=== PATIENT | male | born 1980 | race Caucasian/White ===

== ENCOUNTER 2024-01-08 15:21 | Outpatient (REF) | payer OTHER, SELFPAY ==
[2024-01-08 15:37] LABS: MANUAL DIFF FLAG NO
[2024-01-08 17:31] LABS: Basophils Absolute Auto 0.1 X10*3/uL (0.0-0.2); Basophils Percent Auto 1.2 % (0-2); Eosinophils Absolute Auto 0.4 X10*3/uL (0.0-0.4); Eosinophils Percent Auto 5.3 % (0-4); Hematocrit 47.5 % (42.0-52.0); Hemoglobin 15.9 g/dl (14.0-18.0); Imm Gran Abs Auto 0.03 X10*3/uL (0.00-0.03); Imm Gran Pct Auto 0.4 % (0.0-0.4); Lymphocytes Absolute Auto 2.2 X10*3/uL (1.2-4.9); Lymphocytes Percent Auto 32.2 % (20-40); Mean Corpuscular HGB Conc 33.5 g/dl (31.0-36.0); Mean Corpuscular Hemoglobin 30.2 pg (27.0-33.0); Mean Corpuscular Volume 90.3 fL (80.0-98.0); Mean Platelet Volume 11.4 fL (9.4-12.4); Monocytes Absolute Auto 0.5 X10*3/uL (0.1-1.2); Monocytes Percent Auto 7.3 % (2-11); Neutrophils Absolute Auto 3.7 x10*3/uL (2.0-8.3); Neutrophils Percent Auto 53.6 % (45-73); Platelet Count 239 X10*3/uL (160-400); Red Blood Count 5.26 X10*6/uL (4.60-5.80); Red Cell Distribution Width 12.9 % (11.0-16.0)
[2024-01-08 18:18] LABS: Alanine Aminotransferase 31 U/L (0-40); Albumin Level 4.5 g/dL (3.5-5.0); Alkaline Phosphatase 72 U/L (39-117); Anion Gap 11 (12-20); Aspartate Amino Transferase 24 U/L (5-37); Bilirubin Total 0.5 mg/dL (0.0-1.0); Blood Urea Nitrogen 11 mg/dL (9-16); Calcium 9.7 mg/dL (8.4-10.2); Carbon Dioxide 31 mmol/L (22-29); Chloride 103 mmol/L (96-108); Cholesterol 227 mg/dL (<200); Estimated Glomerular Filt Rate > 60; Glucose Random 53 mg/dL (60-115); Sodium 141 mmol/L (135-145); Total Protein 7.8 g/dL (6.5-8.0)
[2024-01-08 18:19] LABS: Free T4 (Free Thyroxine) 0.92 ng/dL (0.71-1.85); Thyroid Stimulating Hormone 0.92 uIU/mL (0.32-4.0)
[2024-01-08 18:20] LABS: Vitamin B12 264 pg/mL (200-900)
[2024-01-15 12:08] LABS: Testosterone, Free 70.7 pg/mL (35.0-155.0); Testosterone, Total 431 ng/dL (250-1100)
== END 2024-01-08 15:22 | disposition home or self-care (01) ==
LOC: HO.LAB 15:21
PROVIDERS: PCP Internal Medicine; Visit Provider Internal Medicine
DX: R63.5 Abnormal weight gain (principal); R53.83 Other fatigue
CPT/HCPCS: 36415; 80053; 82465; 82607; 84402; 84403; 84439; 84443; 85025

== ENCOUNTER 2024-01-17 07:57 | Outpatient (REF) | payer OTHER, SELFPAY ==
[2024-01-17 09:05] LABS: Cholesterol 213 mg/dL (<200); Glucose Random 77 mg/dL (60-115); HDL Cholesterol 57 mg/dL (>40); LDL Cholesterol Calculated 144 mg/dL (<100); Triglycerides 62 mg/dL (<150)
== END 2024-01-17 07:58 | disposition home or self-care (01) ==
LOC: HO.LAB 07:57
PROVIDERS: PCP Internal Medicine; Visit Provider Internal Medicine
DX: E78.00 Pure hypercholesterolemia, unspecified (principal); E16.2 Hypoglycemia, unspecified
CPT/HCPCS: 36415; 80061; 82947

== ENCOUNTER 2025-07-22 08:33 | Outpatient (AMB) | payer OTHER, SELFPAY ==
--- NOTE | 2025-07-22 08:36 | A.OFFPC_ITS ---
Vital Signs 07/22/25 08:41 Height 5 ft 10 in Weight 196 lb BMI 28.1 BP 140/76 H Blood Pressure Location Rt brachial Position Sitting Respiration 16 Pulse 79 Pulse Source Pulse Oximeter Temp 97.2 F Temp Source Temporal Artery Scan Pulse Oximetry (%) 97 Oxygen Delivery Method Room Air Intake Visit Reasons: physical - Croke pt. - see comments Qc Tech Required: No Accompanied by: Self / Same As Patient Allergies No Known Allergies Allergy (Verified 07/22/25 08:36) Medication List - Last Reconciled 07/22/25 by Jules Oleary MD albuterol sulfate 90 mcg/actuation 2 puffs inhalation Q4H PRN budesonide-formoterol 160-4.5 mcg/actuation (Symbicort) 2 puffs inhalation BID multivitamin 1 tab PO DAILY Novato's wort 300 mg PO DAILY Tobacco use date assessed: 07/22/25 Dental Screening Dental Screen Date: 07/22/25 Did you have a dental visit in the last 12 months?: Yes Did you have a dental problem in the last 6 months where you did not have access to dental care?: No Was dental information given to patient?: Patient has dentist HPI HPI Comments History of Present Illness Details The patient is a 45-year-old male presenting with tinnitus and depressive symptoms. The tinnitus, present in both ears, began insidiously and became noticeable approximately six months ago. It varies in intensity but is continuous, with some associated hearing loss. The patient denies dizziness or headaches but reports attending numerous concerts without ear protection, suggesting noise-induced auditory damage. The patient also reports episodic visual disturbances and an episode of nystagmus two weeks prior, prompting further neurological evaluation. Additionally, the patient experiences symptoms of depression, including persistent low mood, anhedonia, poor appetite, daily feelings of worthlessness, difficulty concentrating on most days, and sleep disturbances on several days. These symptoms elevate nearly every day, impacting daily functioning. There is no history of josse or external stressors contributing to these symptoms. Medical History: - Asthma, well-controlled with medicatio ns - Seasonal Allergies - Alcohol Use Disorder in early remissio n - Major Depressive Disorder - Generalized Anxiety Disorder Surgical History: - No past surgical procedures Medications: - Symbicort, for asthma control, twice d aily - Albuterol, as needed for asthma - Cannabis sleep gummies, occasionally, for sleep Family History: - Father: History of myocardial infarcti on - Grandfather: History of heart disease - No known diabetes, hypertension, or ca ncer in family Social: - , lives with - History of smoking for 15 years, quit 10 years ago - Abstinent from alcohol for 2 months - Uses cannabis gummies a few times a we ek for sleep - Presents with moderate mood and motiva tion challenges COUNT INCLUDES THE [facility] Medical History (Updated 07/22/25 @ 09:04 by Jules Oleary MD) Depression with anxiety Establishing care with new doctor, encounter for Nystagmus Asthma Tinnitus Social History Housing: House Patient Tobacco Use Status: Former Tobacco user Years Smoked: 15 years-quit 10 years ago e-Cigarette/Vaping Use: Never Used service: No Current occupational status: employed Current occupation: [employer] Questionnaire PHQ-9 Over the last 2 weeks, how often have you been bothered by any of the following problems? 1. Little interest or pleasure in doing things: nearly every day 2. Feeling down, depressed, or hopeless: more than half the days 3. Trouble falling or staying asleep, or sleeping too much: more than half the days 4. Feeling tired or having little energy: more than half the days 5. Poor appetite or overeating: nearly every day 6. Feeling bad about yourself - or that you are a failure or have let yourself or your family down: nearly every day 7. Trouble concentrating on things, such as reading the newspaper or watching television: more than half the days 8. Moving or speaking so slowly that other people could have noticed. Or the opposite - being so fidgety or restless that you have been moving around a lot more than usual: not at all 9. Thoughts that you would be better off or of hurting yourself in some way: not at all Total score: 17 Depression Screening Interpretation: Positive Depression Screening Done: Yes 58495 - PHQ-9 Billing: Yes Source: Developed by Drs. Darryl Mcarthur, Nasrin Natarajan, Aaron Munoz and colleagues, with an educational conner from [employer]. Thrive Questionnaire Date Thrive assessed: 07/22/25 I am a: Patient What is your living situation today?: I have a steady place to live Within the past 12 months, did the food you bought not last and you didn't have the money to get more?: Never true Within the past 12 months, did you worry whether your food would run out before you got money to buy more?: Never true Do you have trouble paying for medicines?: No Do you have trouble getting transportation to medical appointments?: No Do you have trouble paying your heating and electricity bill?: No Do you have trouble taking care of your child, family member or friend?: No Do you have trouble with day-to-day activities such as bathing, preparing meals, shopping, managing finances, etc.?: No Are you currently unemployed and looking for a job?: No Are you interested in more education?: No THRIVE Score: 0 AUDIT C Alcohol Use Questionnaire (AUDIT-C) 1. How often do you have a drink containing alcohol?: Monthly or less 2. How many drinks containing alcohol do you have on a typical day when you are drinking?: 3 or 4 Total Score: 2 Score Reviewed/Action Taken: Yes GREG-7 AMB Questionnaire GREG-7 Date GREG - 7 assessed: 07/22/25 Feeling nervous, anxious, or on edge: 1 = Several days Not being able to stop or control worryin = More than half the days Worrying too much about different things: 2 = More than half the days Trouble relaxin = Not at all Being so restless that it is hard to sit still: 0 = Not at all Becoming easily annoyed or irritable: 2 = More than half the days Feeling afraid as if something awful might happen: 0 = Not at all Total GREG-7 score (0-4 normal; 5-9 mild; 10-14 moderate; 15-21 severe): 7 Source: Developed by Drs. Darryl Mcarthur, Nasrin Natarajan, Aaron Munoz and colleagues, with an educational conner from [employer]. GREG-7 Assessment Billing GREG-7 Assessment Tool: GREG-7 Assessment 08980 Review of Systems Const Details: - Neurological: Reports continuous tinnitus, progressive; Denies dizziness and headaches - Visual: Reports episodic visual distortion, denies regular occurrences - Respiratory: Denies chest pain and shortness of breath - Gastrointestinal: Reports poor appetite daily - Sleep: Reports trouble staying asleep on several days All systems reviewed & are unremarkable except as reviewed in HPI and above Physical exam (Primary Care) Vital Signs: Last Vital Signs Temp 97.2 F 07/22/25 08:41 Pulse 79 07/22/25 08:41 Resp 16 07/22/25 08:41 BP 140/76 H 07/22/25 08:41 Pulse Ox 97 07/22/25 08:41 Oxygen Delivery Method Room Air 07/22/25 08:41 BMI result Body Mass Index 28.1 Tobacco/Smoking Status: Tobacco use Status Tobacco use date assessed 07/22/25 07/22/25 08:43 Patient Tobacco Use Status Former Tobacco user 07/22/25 08:43 e-Cigarette/Vaping Use Never Used 07/22/25 08:43 PHQ-9: PHQ-9 Score PHQ-9: Total score 17 07/22/25 08:56 Depression Screening Interpretation: Positive Thrive Assessment: Date of Thrive Assessment Date Thrive assessed 07/22/25 07/22/25 08:56 Const Other: General: +Alert and oriented, Well nourished, No acute distress. Eye: Pupils are equal, round and reactive to light, Intact accommodation, Extraocular movements are intact, Normal conjunctiva, Vision distortions noted, Nystagmus observed in one eye. HENT: Normocephalic, Atraumatic, Tympanic membranes are clear, Hearing loss noted, Oral mucosa is moist, No pharyngeal erythema, Ear canals patent. Respiratory: Lungs CTA bilaterally, No wheeze, Respirations are non-labored. Cardiovascular: Regular rate, Regular rhythm, S1 auscultated, S2 auscultated, No murmur, Good pulses equal in all extremities, Normal peripheral perfusion, No edema. Gastrointestinal: Soft, Non-tender, Non-distended, Normal bowel sounds, No organomegaly. Musculoskeletal: Normal range of motion, Normal strength, No tenderness, No swelling, No deformity, Normal gait. Integumentary: Warm, Dry, [place], Intact. Neurologic: Alert, Oriented, Normal sensory, Normal motor function, No focal defects, Cranial Nerves II-XII are grossly intact, Normal deep tendon reflexes, Tinnitus in both ears, No dizziness, No headaches. Psychiatric: Cooperative, Depressed mood, Low energy, Poor appetite, Trouble concentrating, Positive for generalized anxiety disorder, Normal judgment. Coding Level of Care Code New Pt Level 4 (11710) New Pt Prev Care 40-64y(07412) Diagnoses Tinnitus of both ears H93.13 Laterality: bilateral Nystagmus H55.00 Mild intermittent asthma without complication J45.20 Asthma complication type: uncomplicated Asthma persistence: intermittent Asthma severity: mild Depression with anxiety F41.8 Additional Codes GREG-7 Assessment Billing - GREG-7 Assessment Tool: GREG-7 Assessment 48000 ([id number]) PHQ-9 - 60158 - PHQ-9 Billing: Yes ([id number]) Assessment & Plan Assessment & Plan (1) Tinnitus: Comment: Presenting with tinnitus for the past 6 months which is continuous and occasionally pulsatile in nature. Also has some associated hearing loss with positive Webbers test lateralizing to the right ear. Has also had an episode of nystagmus. Given all these symptoms and the nature of the tinnitus, there remains a possibility for vestibular schwannomas or some intracranial pathology or hearing loss. Therefore we will obtain an MRI and a hearing evaluation simultaneously. Code(s): H93.19 - Tinnitus, unspecified ear Category: Medical Qualifiers: Laterality: bilateral Qualified Code(s): H93.13 - Tinnitus, bilateral (2) Nystagmus: Comment: One episode and nystagmus seen on the right eye by patient's partner during evaluation at home when he was having vision changes. Could be related to the above tinnitus with intracranial pathology therefore we will await MRI results Code(s): H55.00 - Unspecified nystagmus Category: Medical (3) Asthma: Comment: - Continue current medication regimen with Symbicort and Albuterol for asthma management. Code(s): J45.909 - Unspecified asthma, uncomplicated Category: Medical Qualifiers: Asthma complication type: uncomplicated Asthma persistence: intermittent Asthma severity: mild Qualified Code(s): J45.20 - Mild intermittent asthma, uncomplicated (4) Depression with anxiety: Comment: - Initiate therapy with sertraline 50 mg once daily after a 2-week cessation of Novato?s Wort. - Referral to psychiatry for further evaluation and management. Code(s): F41.8 - Other specified anxiety disorders Category: Medical Plan: Health Maintenance: - Recommend colonoscopy for colorectal cancer screening as per guideline initiation at age 45. (Ordered today) Plan During the visit, I discussed with the patient that the primary concern is the tinnitus, for which an MRI is indicated due to the persistent nature and symptoms of hearing loss on the right side. I explained the potential risks and benefits of the MRI study. For the patient's depressive symptoms, I recommended starting sertraline after discontinuing Novato?s Wort to reduce the risk of s erotonin syndrome. A follow-up with psychiatry was advised for ongoing management and evaluation. Additionally, I emphasized the importance of a colonoscopy for preventive health. Orders: Orders MR head/brain wo con Today H55.00 - Unspecified nystagmus, H93.19 - Tinnitus, unspecified ear, J45.909 - Unspecified asthma, uncomplicated Comprehensive Met. Panel Today Z76.89 - Persons encountering health services in other specified circumstances Hemoglobin A1c Today Z76.89 - Persons encountering health services in other specified circumstances Hepatitis A,B,C Profile Today Z76.89 - Persons encountering health services in other specified circumstances HIV Ab/Ag Today Z76.89 - Persons encountering health services in other specified circumstances Lipid Panel Today Z76.89 - Persons encountering health services in other specified circumstances TSH reflex Free T4 Today Z76.89 - Persons encountering health services in other specified circumstances Vitamin D 25-OH Total Today Z76.89 - Persons encountering health services in other specified circumstances Complete Blood Count Auto Diff Today Z76.89 - Persons encountering health services in other specified circumstances Syphilis Screen Today Z76.89 - Persons encountering health services in other specified circumstances Referrals Audiology Referral H55.00 - Unspecified nystagmus, H93.19 - Tinnitus, unspecified ear Open Access Screening Colonoscopy Referral Z12.11 - Encounter for screening for malignant neoplasm of colon Medications: New sertraline 50 mg PO DAILY 90 tabs 0RF 90 days Patient Instructions: - Continue taking Symbicort and Albuterol as prescribed. - Stop Novato?s Wort; start sertraline 50 mg once daily in two weeks. - Schedule and undergo MRI of the brain. - Arrange and attend a scheduled hearing test. - Prepare for and undergo a colonoscopy. - Follow up with a psychiatrist for depression and anxiety management. - Maintain a healthy lifestyle, avoid noise exposure, and continue abstinence from alcohol. - Return for follow-up appointment in eight weeks to assess treatment efficacy.
[2025-07-22 08:41] VITALS: BP 140/76; PULSE 79; RESP 16; TEMP 36.2; O2SAT 97; BMI 28.1
== END 2025-07-22 09:17 | disposition home or self-care (01) ==
PROVIDERS: PCP Student in an Organized Health Care Education/Training Program; Visit Provider Student in an Organized Health Care Education/Training Program
DX: Z00.00 Encounter for general adult medical examination without abnormal findings (principal); H93.13 Tinnitus, bilateral; H55.00 Unspecified nystagmus; J45.20 Mild intermittent asthma, uncomplicated; F41.8 Other specified anxiety disorders

== ENCOUNTER → 2025-07-22 08:33 | Outpatient (BNVA) | payer OTHER, SELFPAY | PROVIDERS: PCP Internal Medicine; Visit Provider Student in an Organized Health Care Education/Training Program | DX: H93.13 Tinnitus, bilateral (principal); H55.00 Unspecified nystagmus; J45.20 Mild intermittent asthma, uncomplicated; F41.8 Other specified anxiety disorders; F32.9 Major depressive disorder, single episode, unspecified; Z13.31 Encounter for screening for depression; Z13.39 Encounter for screening examination for other mental health and behavioral disorders | CPT/HCPCS: 96127 ==

== ENCOUNTER 2025-07-26 09:00 | Outpatient (REF) | payer OTHER, SELFPAY ==
[2025-07-26 10:02] LABS: MANUAL DIFF FLAG NO
[2025-07-26 10:31] LABS: Hematocrit 46.5 % (42.0-52.0); Hemoglobin 15.9 g/dl (14.0-18.0); Imm Gran Abs Auto 0.03 X10*3/uL (0.00-0.03); Imm Gran Pct Auto 0.5 % (0.0-0.4); Lymphocytes Absolute Auto 1.9 X10*3/uL (1.2-4.9); Mean Corpuscular HGB Conc 34.2 g/dl (31.0-36.0); Mean Corpuscular Hemoglobin 30.1 pg (27.0-33.0); Mean Corpuscular Volume 88.1 fL (80.0-98.0); NRBC Abs Auto 0.000 X10*3/uL (0.0-0.012); NRBC Pct Auto 0.0 /100WBC (0.0-0.2); Platelet Count 217 X10*3/uL (160-400); Red Blood Count 5.28 X10*6/uL (4.60-5.80); White Blood Count 5.9 X10*3/uL (4.8-10.8)
[2025-07-26 10:38] LABS: Hemoglobin A1C 136.9614 umol/L; Total Hemoglobin (HGBA1C) 4177.5691 umol/L
[2025-07-26 11:05] LABS: HBS Num1 100.59 mIU/mL (0-7.99); HBc Num1 0.07 S/CO (0.00-0.79); HBsAGNum1 0.42 S/CO (0.00-0.99); HIV Num 1 0.04 S/CO (0.00-0.99); Hepatitis A Antibody IgM 0.22 Index (0-0.79); Hepatitis B Surface Antigen Negative (Negative); Syphilis Screen Nonreactive (Nonreactive); ~HepC Num1 0.07 S/CO (0.00-0.79); ~Hepatitis A Antibody IgM Nonreactive (Nonreactive); ~Hepatitis B Surface Antibody REACTIVE (Nonreactive); ~Hepatitis C Antibody Nonreactive (Nonreactive)
[2025-07-26 11:14] LABS: Alanine Aminotransferase 34 U/L (0-40); Albumin Level 4.5 g/dL (3.5-5.0); Alkaline Phosphatase 62 U/L (39-117); Anion Gap 11 (12-20); Aspartate Amino Transferase 30 U/L (5-37); Blood Urea Nitrogen 5 mg/dL (9-16); Calcium 9.7 mg/dL (8.4-10.2); Carbon Dioxide 30 mmol/L (22-29); Chloride 106 mmol/L (96-108); Cholesterol 206 mg/dL (<200); Estimated Glomerular Filt Rate > 60; HDL Cholesterol 47 mg/dL (>40); Potassium 4.7 mmol/L (3.3-5.1); Sodium 142 mmol/L (135-145); Total Protein 7.3 g/dL (6.5-8.0); Triglycerides 126 mg/dL (<150)
== END 2025-07-26 09:01 | disposition home or self-care (01) ==
LOC: HO.10HDL 09:00
PROVIDERS: Visit Provider Student in an Organized Health Care Education/Training Program
DX: Z11.4 Encounter for screening for human immunodeficiency virus [HIV] (principal); Z13.1 Encounter for screening for diabetes mellitus; Z13.6 Encounter for screening for cardiovascular disorders; Z13.29 Encounter for screening for other suspected endocrine disorder; Z76.89 Persons encountering health services in other specified circumstances
CPT/HCPCS: 36415; 80053; 80061; 82306; 83036; 84443; 85025; 86704; 86706; 86709; 86780; 86803; 87340; 87389

== ENCOUNTER → 2025-08-20 07:18 | Outpatient (BNV) | payer OTHER, SELFPAY | PROVIDERS: PCP Student in an Organized Health Care Education/Training Program; Visit Provider Radiology Diagnostic Radiology | DX: H93.13 Tinnitus, bilateral (principal) | CPT/HCPCS: 70551 ==

== ENCOUNTER 2025-08-20 07:22 | Outpatient (REF) | payer OTHER, SELFPAY ==
--- NOTE | ~2025-08-20 | MR_ITS ---
EXAMINATION: MR BRAIN WITHOUT IV CONTRAST HISTORY: H93.19 - Tinnitus, unspecified ear TECHNIQUE: Sagittal T1, and axial T1, FLAIR, T2, gradient echo, and diffusion weighted MR images of the brain were obtained. In addition, high resolution T2-weighted images were obtained through the internal auditory canals. COMPARISON: There are no prior studies available for comparison. FINDINGS: The pituitary is normal in size. The cerebellar tonsils are normally located. The brain parenchyma is unremarkable, demonstrating normal davis/white differentiation. No foci of abnormal signal intensity are identified. The ventricular system is normal in size and configuration. There is no mass effect or midline shift. No intra or extra-axial fluid collections are identified. There are no foci of restricted diffusion. No abnormality is seen in the internal auditory canals and high resolution T2-weighted images. Normal vascular flow voids are noted in the basilar and carotid arteries. The visualized paranasal sinuses are clear. MR/MR head/brain wo con IMPRESSION: Unremarkable MRI of the brain without contrast. No abnormality is seen in the internal auditory canals and high resolution T2 weighted images. If there remains clinical concern for an internal auditory canal mass, a contrast-enhanced examination is recommended. Electronically signed by: Darryl Stapleton MD 08/20/2025 08:23 AM EDT
== END 2025-08-20 07:23 | disposition home or self-care (01) ==
LOC: HO.MRI 07:22
PROVIDERS: PCP Student in an Organized Health Care Education/Training Program; Visit Provider Student in an Organized Health Care Education/Training Program
DX: H93.19 Tinnitus, unspecified ear (principal); J45.909 Unspecified asthma, uncomplicated; H55.00 Unspecified nystagmus
CPT/HCPCS: 70551

== ENCOUNTER 2025-09-16 09:01 | Outpatient (AMB) | payer OTHER, SELFPAY ==
--- NOTE | 2025-09-16 08:53 | A.OFFPC_ITS ---
Vital Signs 09/16/25 09:06 Height 5 ft 10 in Weight 196 lb BMI 28.1 BP 128/82 Blood Pressure Location Lt brachial Position Sitting Respiration 20 Pulse 68 Pulse Source Pulse Oximeter Temp 97.2 F Temp Source Temporal Artery Scan Pulse Oximetry (%) 99 Oxygen Delivery Method Room Air Intake Visit Reasons: 8 week f/u mri and BW Client Support Coordinator Required: No Accompanied by: Self / Same As Patient Allergies No Known Allergies Allergy (Verified 09/16/25 08:54) Medication List - Last Reconciled 09/16/25 by Jules Oleary MD albuterol sulfate 90 mcg/actuation 2 puffs inhalation Q4H PRN budesonide-formoterol 160-4.5 mcg/actuation (Symbicort) 2 puffs inhalation BID multivitamin 1 tab PO DAILY sertraline 50 mg PO DAILY 90 days Tobacco use date assessed: 07/22/25 Dental Screening Dental Screen Date: 07/22/25 HPI HPI Comments History of Present Illness Details The patient is a 45-year-old male presenting for a follow-up visit for management of tinnitus, mood, and other chronic conditions. He reports a universally present ringing in the ear (tinnitus) that is unchanged. A prior MRI of the brain, prompted by tinnitus and a history of nystagmus, was negative for any tumor or mass. He has not yet had a hearing test. Regarding his mood, the patient feels there has been a subtle but positive effect from the sertraline prescribed at the last visit. He reports significant improvement in both depression and anxiety symptoms, with his depression screening score improving from 17 to 3, now in the mild range. He is not interested in increasing the dose at this time and prefers to continue with the current regimen. A review of recent blood work revealed an elevated total cholesterol of 206 mg/dL and an LDL of 134 mg/dL, which has been high previously. Other blood work, including blood counts and electrolytes, was stable and good. The patient's asthma is well-controlled and unnoticeable with the use of a maintenance inhaler. He received a letter for a colonoscopy but has not yet scheduled the procedure. Medical History: - Tinnitus - Nystagmus - Depression - Anxiety - Hypercholesterolemia - Asthma Medications: - Sertraline for depression and anxiety. - Maintenance inhaler for asthma. Diagnostic Results: - MRI Brain: Did not show a tumor or mas s. - Labs: Blood counts and electrolytes ar e stable and good. - Lipid Panel: Total cholesterol is 206 mg/dL and LDL cholesterol is 134 mg/dL. - Depression Screening: Score improved f rom 17 to 11. Social History: - Diet: Advised to improve diet by avoid ing junk food, processed foods, and high-fat items. [facility] Medical History (Updated 09/16/25 @ 09:20 by Jules Oleary MD) Hyperlipidemia Depression with anxiety Establishing care with new doctor, encounter for Nystagmus Asthma Tinnitus Social History Housing: House Patient Tobacco Use Status: Former Tobacco user Years Smoked: 15 years-quit 10 years ago e-Cigarette/Vaping Use: Never Used service: No Current occupational status: employed Current occupation: [employer] Questionnaire PHQ-9 Over the last 2 weeks, how often have you been bothered by any of the following problems? 1. Little interest or pleasure in doing things: more than half the days 2. Feeling down, depressed, or hopeless: more than half the days 3. Trouble falling or staying asleep, or sleeping too much: not at all 4. Feeling tired or having little energy: not at all 5. Poor appetite or overeating: nearly every day 6. Feeling bad about yourself - or that you are a failure or have let yourself or your family down: more than half the days 7. Trouble concentrating on things, such as reading the newspaper or watching television: more than half the days 8. Moving or speaking so slowly that other people could have noticed. Or the opposite - being so fidgety or restless that you have been moving around a lot more than usual: not at all 9. Thoughts that you would be better off or of hurting yourself in some way: not at all Total score: 11 Depression Screening Interpretation: Positive Depression Screening Done: Yes 66024 - PHQ-9 Billing: Yes Source: Developed by Drs. Darryl Mcarthur, Nasrin Natarajan, Aaron Munoz and colleagues, with an educational conner from [employer]. Thrive Questionnaire Date Thrive assessed: 09/16/25 I am a: Patient What is your living situation today?: I have a steady place to live Within the past 12 months, did the food you bought not last and you didn't have the money to get more?: Never true Within the past 12 months, did you worry whether your food would run out before you got money to buy more?: Never true Do you have trouble paying for medicines?: No Do you have trouble getting transportation to medical appointments?: No Do you have trouble paying your heating and electricity bill?: No Do you have trouble taking care of your child, family member or friend?: No Do you have trouble with day-to-day activities such as bathing, preparing meals, shopping, managing finances, etc.?: No Are you currently unemployed and looking for a job?: No Are you interested in more education?: No THRIVE Score: 0 AUDIT C Alcohol Use Questionnaire (AUDIT-C) 1. How often do you have a drink containing alcohol?: Monthly or less 2. How many drinks containing alcohol do you have on a typical day when you are drinking?: 3 or 4 Total Score: 2 Score Reviewed/Action Taken: Yes GREG-7 AMB Questionnaire GREG-7 Date GREG - 7 assessed: 09/16/25 Feeling nervous, anxious, or on edge: 1 = Several days Not being able to stop or control worryin = Not at all Worrying too much about different things: 1 = Several days Trouble relaxin = Not at all Being so restless that it is hard to sit still: 0 = Not at all Becoming easily annoyed or irritable: 0 = Not at all Feeling afraid as if something awful might happen: 1 = Several days Total GREG-7 score (0-4 normal; 5-9 mild; 10-14 moderate; 15-21 severe): 3 Source: Developed by Drs. Darryl Mcarthur, Nasrin Natarajan, Aaron Munoz and colleagues, with an educational conner from [employer]. GREG-7 Assessment Billing GREG-7 Assessment Tool: GREG-7 Assessment 93838 Review of Systems Narrative - Ears: Reports unchanged, universally present ringing in the ear. - Psychiatric: Reports improved mood, depression and anxiety. - Respiratory: Denies symptoms as asthma is unnoticeable. - Gastrointestinal: Reports normal bowel and bladder function, denies nausea and vomiting. - Cardiovascular: Denies chest pain. All systems reviewed & are unremarkable except as reviewed in HPI and above Physical exam (Primary Care) Vital Signs: Last Vital Signs Temp 97.2 F 09/16/25 09:06 Pulse 68 09/16/25 09:06 Resp 20 09/16/25 09:06 BP 128/82 09/16/25 09:06 Pulse Ox 99 09/16/25 09:06 Oxygen Delivery Method Room Air 09/16/25 09:06 BMI result Body Mass Index 28.1 Tobacco/Smoking Status: Tobacco use Status Tobacco use date assessed 07/22/25 09/16/25 08:54 Patient Tobacco Use Status Former Tobacco user 09/16/25 08:54 e-Cigarette/Vaping Use Never Used 09/16/25 08:54 PHQ-9: PHQ-9 Score PHQ-9: Total score 11 09/16/25 09:13 Depression Screening Interpretation: Positive Thrive Assessment: Date of Thrive Assessment Date Thrive assessed 07/22/25 09/16/25 08:54 Narrative General: Alert and oriented, Well nourished, No acute distress. Eye: Pupils are equal, round and reactive to light, Intact accommodation, Extraocular movements are intact, Normal conjunctiva, Vision unchanged, No nystagmus. HENT: Normocephalic, Atraumatic, Tympanic membranes are clear, Normal hearing, Oral mucosa is moist, No pharyngeal erythema, Ear canals patent, Tinnitus present. Respiratory: Lungs CTA bilaterally, No wheeze, Respirations are non-labored. Cardiovascular: Regular rate, Regular rhythm, S1 auscultated, S2 auscultated, No murmur, Good pulses equal in all extremities, Normal peripheral perfusion, No edema. Gastrointestinal: Soft, Non-tender, Non-distended, Normal bowel sounds, No organomegaly. Musculoskeletal: Normal range of motion, Normal strength, No tenderness, No swelling, No deformity, Normal gait. Integumentary: Warm, Dry, Dickinson, Intact. Neurologic: Alert, Oriented, Normal sensory, Normal motor function, No focal defects, Cranial Nerves II-XII are grossly intact, Normal deep tendon reflexes. Psychiatric: Cooperative, Appropriate mood & affect, Normal judgment, Improvement noted in depression and anxiety symptoms. Coding Level of Care Code Est Pt Level 4 (93433) Complex EM visit Add On G2211 Diagnoses Tinnitus of both ears H93.13 Laterality: bilateral Depression with anxiety F41.8 Mild intermittent asthma without complication J45.20 Asthma severity: mild Asthma persistence: intermittent Asthma complication type: uncomplicated Hyperlipidemia, unspecified hyperlipidemia type E78.5 Hyperlipidemia type: unspecified Additional Codes GREG-7 Assessment Billing - GREG-7 Assessment Tool: GREG-7 Assessment 62041 ([id number]) PHQ-9 - 91649 - PHQ-9 Billing: Yes ([id number]) Assessment & Plan Assessment & Plan (1) Tinnitus: Comment: - The patient's tinnitus is persistent and unchanged. - A recent MRI of the brain was negative, ruling out a tumor or mass. - The plan is for the patient to undergo a hearing test to rule out hearing loss as a cause. - If the hearing test is normal, an ENT referral will be placed. Code(s): H93.19 - Tinnitus, unspecified ear Category: Medical Qualifiers: Laterality: bilateral Qualified Code(s): H93.13 - Tinnitus, bilateral (2) Depression with anxiety: Comment: - There has been a significant improvement in symptoms with sertraline, as ev idenced by a drop in his depression screening score from 17 to 11 & Improvement in Anxiety screen - The patient wishes to continue the current dose without any increase. - We will continue the current dose of sertraline. Code(s): F41.8 - Other specified anxiety disorders Category: Medical (3) Asthma: Comment: - The condition is well-controlled and asymptomatic with his current maintenance inhaler. - No changes will be made to his regimen at this time. Code(s): J45.909 - Unspecified asthma, uncomplicated Category: Medical Qualifiers: Asthma severity: mild Asthma persistence: intermittent Asthma complication type: uncomplicated Qualified Code(s): J45.20 - Mild intermittent asthma, uncomplicated (4) Hyperlipidemia: Comment: - Recent labs show a total cholesterol of 206 mg/dL and LDL of 134 mg/dL. - Given his age, the primary recommendation is dietary modification, including avoiding junk food, processed foods, and high-fat items. - No medication will be started at this time. Code(s): E78.5 - Hyperlipidemia, unspecified Category: Medical Qualifiers: Hyperlipidemia type: unspecified Qualified Code(s): E78.5 - Hyperlipidemia, unspecified Plan: Health Maintenance: - Colonoscopy: Advised to schedule a colonoscopy as recommended. - Diet: Advised to make dietary changes to manage high cholesterol, including avoiding junk food and processed foods, and focusing on low-fat options. Patient was informed and verbally consented to the use of an ambient scribe for clinic note documentation during this visit. Plan I discussed with the patient that his tinnitus remains unchanged, and that the normal MRI was a reassuring finding. I explained the next step is to get a hearing test to rule out hearing loss, and that if it is normal, I will refer him to an ENT specialist. I acknowledged the significant improvement in his depression and anxiety symptoms on sertraline and agreed with his preference to continue the current dose. We reviewed his lab results, noting his elevated cholesterol. I explained the importance of lowering his bad cholesterol to reduce his risk for heart attacks and strokes and recommended dietary changes rather than medication at this time. I also reminded him to schedule his pending colonoscopy. We will maintain all other current treatments as his asthma is well-controlled, and I have scheduled a follow-up appointment in six months. Patient Instructions: - Please schedule and complete a hearing test for your tinnitus. - After you get your hearing test done, please call our office. - If the test is normal, we will place a referral for you to see an Ear, Nose, and Throat (ENT) specialist. - Continue taking your sertraline as prescribed. - To help lower your cholesterol, please make changes to your diet. - Avoid junk food, processed foods, and foods high in fat. - Continue using your maintenance inhaler for asthma as your symptoms are well- controlled. - Please contact the appropriate office to schedule your colonoscopy. - Schedule a follow-up appointment in six months.
[2025-09-16 09:06] VITALS: BP 128/82; PULSE 68; RESP 20; TEMP 36.2; O2SAT 99; BMI 28.1
== END 2025-09-16 09:18 | disposition home or self-care (01) ==
LOC: HO.HMCHD 09:01
PROVIDERS: PCP Student in an Organized Health Care Education/Training Program; Visit Provider Student in an Organized Health Care Education/Training Program
DX: H93.13 Tinnitus, bilateral (principal); F41.8 Other specified anxiety disorders; J45.20 Mild intermittent asthma, uncomplicated; E78.5 Hyperlipidemia, unspecified

== ENCOUNTER → 2025-09-16 09:01 | Outpatient (BNVA) | payer OTHER, SELFPAY | PROVIDERS: PCP Student in an Organized Health Care Education/Training Program; Visit Provider Student in an Organized Health Care Education/Training Program | DX: H93.13 Tinnitus, bilateral (principal); F41.8 Other specified anxiety disorders; J45.20 Mild intermittent asthma, uncomplicated; E78.5 Hyperlipidemia, unspecified | CPT/HCPCS: 96127 ==